=== PATIENT | female | born 2000 | race Caucasian/White ===

== ENCOUNTER 2023-05-12 11:47 | Emergency (ER) | payer OTHER, BC, SELFPAY ==
[2023-05-12 11:53] VITALS: BP 121/83
[2023-05-12 12:00] VITALS: BP 120/83; BMI 38.2
[2023-05-12 12:24] LABS: % Basophils 0.6 % (0-2); % Eosinophils 1.6 % (0-6); % Immature Granulocytes 0.6 % (0-0.5); % Monocytes 9.5 % (1.7-9.3); % Neutrophils 54.7 % (42.2-75.2); Absolute Eosinophils 0.1 10^3/uL (0-0.7); Absolute Lymphocytes 2.3 10^3/uL (1.2-3.4); Absolute Monocytes 0.7 10^3/uL (0.1-0.6); Absolute Neutrophils 3.8 10^3/uL (1.4-6.5); Hemoglobin 12.7 g/dL (12.0-16.0); Mean Corp Hgb Conc. 32.6 g/dL (33.0-37.0); Mean Corpuscular Volume 86.1 fL (81.0-99.0); Nucleated Red Blood Cells % 0 %; Platelet Count 375 10^3/uL (130-400); Red Blood Cell Count 4.53 10^6/uL (4.20-5.40); White Blood Cell Count 6.9 10^3/uL (4.8-10.8)
[2023-05-12 12:39] LABS: ALT (SGPT) 18 U/L (0-35); AST (SGOT) 20 U/L (14-36); Albumin 4.2 g/dl (3.5-5.0); Alkaline Phosphatase 125 U/L (38-126); Blood Urea Nitrogen 15 mg/dl (7-17); Calcium 9.3 mg/dl (8.4-10.2); Carbon Dioxide 27 mmol/L (22-30); Chloride 101 mmol/L (98-107); Estimated Creatinine Clearance > 125 ml/min; Glucose 99 mg/dl (70-99); Potassium 4.6 mmol/L (3.5-5.1); Sodium 136 mmol/L (135-145); Total Bilirubin 0.2 mg/dl (0.2-1.3); Total Protein 6.9 g/dl (6.3-8.2); eGFR > 60.00
[2023-05-12 13:00] VITALS: BP 111/92
--- NOTE | 2023-05-12 13:37 | ED.GENMED ---
History of Present Illness
General
Chief Complaint: Seizure
Source: patient
Time Seen by Provider: 05/12/23 13:25
Travel History
Have you had any contact with someone who has COVID-19?: No
Do you have any symptoms of coronavirus? Fever > 100 degrees, chills, cough, shortness of breath, sore throat, loss of taste or smell, muscle aches, or headache?: No
History of Present Illness
History of Present Illness:
19-year-old female presents to the emergency room stating she had a seizure at work. She hit the left side of her head but she fell. She has been compliant with her medication. She states this was a typical seizure for her. She does have a
headache. She is hungry and would like to eat.
Phy Exam
Physical Exam
Physical Exam:
General: Awake, Alert, Oriented X3. No acute distress.
Vitals: unremarkable
Head: Atraumatic
Eyes: Pupils equal, EOMI
Throat: Airway intact, no exudates
Neck: Trachea midline
Lungs: Clear and equal b/l
Heart: Regular rate, no murmurs
Abd: Soft, Nontender, No pulsatile mass
Neuro: Nonfocal
Skin: Warm, dry, no rash
Extremities: pulses equal b/l, no edema
Course
Orders/Labs/Results
Orders:
Orders
05/12/23 11:52
Electrocardiogram (*1) Urgent
Reason for Study: Vertigo / Dizzy
EKG- Treatment ONCE
05/12/23 12:08
CMP [Comprehensive Metabolic Panel] Urgent
Complete Blood Count/With Diff Urgent
05/12/23 13:34
CT Head W/o Iv Contrast Urgent
Comment:
Reason For Exam: head injury
Abnormal Lab Results
05/12/23
12:08
MCHC 32.6 L g/dL
(33.0-37.0)
Absolute Monos (auto) 0.7 H 10^3/uL
(0.1-0.6)
Immature Gran % 0.6 H %
(0-0.5)
Monocytes % 9.5 H %
(1.7-9.3)
05/12/23 12:08
05/12/23 12:08
Vital Signs
Initial and Last Documented VS:
Initial Vital Signs
Temp Pulse Resp BP Pulse Ox
98.6 F 88 18 121/83 98
05/12/23 11:53 05/12/23 11:53 05/12/23 11:53 05/12/23 11:53 05/12/23 11:53
Last Documented Vital Signs
Temp Pulse Resp BP Pulse Ox
98.6 F 90 17 112/79 96
05/12/23 11:53 05/12/23 14:00 05/12/23 14:00 05/12/23 14:00 05/12/23 14:00
MDM/Problems Addressed
Differential Diagnosis Includes:
Breakthrough seizure, concussion, subdural
MDM/Problems Addressed:
CT head is normal. Patient is at her baseline. Stable for discharge home continue taking her seizure medication.
*Radiology
Radiology exam reviewed: radiology read reviewed
*EKG
Interpreted by ED Provider?: Yes
Interpretation: normal
Heart Rate: 93
Rate: normal
Rhythm: sinus
[place]: normal axis
Interval: normal interval
QRS Pattern: normal QRS
Ischemia: no ischemia
*Power Press Operator Interpretation
Rate: normal
Interpretation: normal
Rhythm: sinus
*Critical Care Note
Total Time (30-74mins, 75-104mins- exclusive of procedures): Not Applicable
ED Attending Note
-
Portions of this chart may have been created with voice recognition software.� Occasional wrong word or��sound alike� substitutions may have occurred due to the inherent limitations of voice recognition software.
Discharge Plan
Departure
Patient Disposition: Home (Routine Discharge)
Date of Disposition: 05/12/23
Time of Disposition: 15:08
Patient with high blood pressure during this ER visit?: No
Condition: Good
Discharge Problem:
Breakthrough seizure, Head injury
Instructions: Seizures, Adult (DC), Head Injury in Adults (DC)
Referrals:
Cassidy Steve CRNP [Family Provider] -
Interventions
Interventions:
*Risk Screen - Suicide Last Done: 05/12/23 11:54
*General Assessment Last Done: 05/12/23 11:54
*Neglect/Abuse Screening Last Done: 05/12/23 11:54
*ED COVID-19 Vaccine History Last Done: 05/12/23 11:54
*Nursing Disposition Last Done: 05/12/23 15:25
ED- Cardiac Assessment Last Done: 05/12/23 12:10
ED- Neurological Assessment Last Done: 05/12/23 12:10
ED- Pulmonary Assessment Last Done: 05/12/23 12:10
Discharge Date and Time
Discharge Date/Time: 05/12/23 15:44
[2023-05-12 14:00] VITALS: BP 112/79
== END 2023-05-12 15:44 | disposition home or self-care (01) ==
LOC: EMR 11:47
PROVIDERS: Emergency Medicine; EMERGENCY PHYSICIAN Emergency Medicine; FAMILY PHYSICIAN Nurse Practitioner Family
DX: G40.909 Epilepsy, unspecified, not intractable, without status epilepticus (principal); S06.0XAA Concussion with loss of consciousness status unknown, initial encounter; W19.XXXA Unspecified fall, initial encounter
CPT/HCPCS: 99285; 70450; 80053; 85025; 93005

== ENCOUNTER 2023-05-28 23:59 | Inpatient (IN) | payer BC, OTHER, SELFPAY ==
[2023-05-28] VITALS (7 sets, daily range): BP systolic 112–136; BP diastolic 65–79; BMI 37.9
[2023-05-28 16:29] LABS: Urine Albumin Trace (Neg - Trace); Urine Bilirubin 1+ (Negative); Urine Character Slightly Cloudy (Clear); Urine Color Yellow; Urine Glucose Negative (Negative); Urine Ketone Trace (Negative); Urine Leukocyte Trace (Negative); Urine Nitrite Negative (Negative); Urine Occult Blood Negative (Negative); Urine Urobilinogen 2+ (Neg - 1+)
[2023-05-28 16:30] LABS: % Basophils 0.6 % (0-2); % Eosinophils 0.2 % (0-6); % Immature Granulocytes 0.6 % (0-0.5); % Lymphocytes 62.5 % (20.5-51.1); % Monocytes 6.6 % (1.7-9.3); % Neutrophils 29.5 % (42.2-75.2); Absolute Basophils 0.1 10^3/uL (0-0.2); Absolute Immature Granulocytes 0.1 10^3/uL (0-0.05); Absolute Lymphocytes 8.7 10^3/uL (1.2-3.4); Absolute Monocytes 0.9 10^3/uL (0.1-0.6); Absolute Neutrophils 4.1 10^3/uL (1.4-6.5); Hematocrit 40.2 % (37.0-47.0); Hemoglobin 12.7 g/dL (12.0-16.0); Mean Corp Hgb Conc. 31.6 g/dL (33.0-37.0); Mean Corpuscular Hgb 27.3 pg (27.0-31.0); Mean Corpuscular Volume 86.3 fL (81.0-99.0); Mean Platelet Volume 9.1 fL (7.4-10.4); Nucleated Red Blood Cells % 0 %; Platelet Count 243 10^3/uL (130-400); Red Blood Cell Count 4.66 10^6/uL (4.20-5.40); Red Cell Dist. Width 14.9 % (11.5-14.5); White Blood Cell Count 13.9 10^3/uL (4.8-10.8)
[2023-05-28 16:44] LABS: ALT (SGPT) 107 U/L (0-35); AST (SGOT) 40 U/L (14-36); Albumin 3.3 g/dl (3.5-5.0); Alkaline Phosphatase 394 U/L (38-126); Blood Urea Nitrogen 11 mg/dl (7-17); Carbon Dioxide 22 mmol/L (22-30); Chloride 109 mmol/L (98-107); Estimated Creatinine Clearance > 125 ml/min; Glucose 84 mg/dl (70-99); Potassium 3.9 mmol/L (3.5-5.1); Sodium 138 mmol/L (135-145); Total Bilirubin 0.4 mg/dl (0.2-1.3); Total Protein 6.1 g/dl (6.3-8.2); eGFR > 60.00
[2023-05-28 16:51] LABS: Urine Squamous Cell >30 /LPF (Few)
[2023-05-28 16:52] LABS: Urine Bacteria Many (Negative); Urine Red Blood Cell 0-2 /HPF (0-2); Urine White Cell 0-2 /HPF (0-5)
[2023-05-28 16:57] LABS: Absolute Neutrophils -Man Diff 5.2 10^3/uL (1.4-6.5); Band Neutrophils 4 % (0-3); Lymphocytes 16 % (20-51); Monocytes 3 % (2-9); Plasmacytoid Lymphocytes 43 %; Platelets Checked Yes; Segmented Neutrophils 34 % (42-75)
[2023-05-28 16:58] LABS: Normal RBC Morphology Yes; Total Cells Counted 100
--- NOTE | 2023-05-28 17:01 | ED.GENMED ---
History of Present Illness
General
Chief Complaint: Abdominal Pain
Time Seen by Provider: 05/28/23 17:01
Travel History
Have you had any contact with someone who has COVID-19?: No
Do you have any symptoms of coronavirus? Fever > 100 degrees, chills, cough, shortness of breath, sore throat, loss of taste or smell, muscle aches, or headache?: No
History of Present Illness
History of Present Illness:
HPI: Patient came in by ambulance due to upper abdominal pain that worsens with eating. The pain is primarily on the left side. She also has throat pain. The patient states that she was recently diagnosed with mono and states that she had imaging
that showed hepatosplenomegaly seen on CAT scan at [facility] about a week ago. She was just at [facility] within the past couple of days and was given fluids and then released. She came in here by ambulance for further evaluation.
EXAM:
GENERAL: The patient appears somewhat fatigued and uncomfortable
HEENT: Moist oral mucosa
CARDIOVASCULAR: No murmurs, tachycardic heart rate, regular rhythm, No chest wall tenderness
PULMONARY: No respiratory distress, breath sounds are clear and equal
ABDOMEN: Soft with no peritoneal signs, minimal left-sided tenderness
NEUROLOGIC: Excellent strength all extremities, no coordination deficits
PSYCHIATRIC: Appropriate mental status, normal insight and judgement
EXTREMITIES: Nontender, no edema, moves all extremities equally
SKIN: No rash, no lesions
TIME OF INITIAL ENCOUNTER: 5 PM
NUMBER AND COMPLEXITY OF PROBLEMS ADDRESSED AT THE ENCOUNTER
� Chronic conditions affecting care: Seizures, anxiety, bipolar/depression, OCD, PTSD
� Acute Exacerbation and/or Progression of Chronic Illness: This is a subacute problem
� Differential Diagnosis includes: Progression of mono, splenic rupture unlikely but will consider, gastritis/GERD
AMOUNT AND/OR COMPLEXITY OF DATA TO BE REVIEWED AND ANALYZED
� I performed an independent evaluation of and my interpretation is:
EKG:
CT: CT imaging relatively unremarkable
X-rays:
Laboratory Studies: White count 13.9, hemoglobin normal, transaminases slightly elevated, alk phos is 394, 1+ bilirubin in urine noted, trace ketones
Other: Ultrasound imaging report read by vision shows 'small mobile gallstone wounds in the gallbladder, no gallbladder wall thickening or pericholecystic fluid, negative Valerio sign, common bile duct measures 4.8 mm, mild
splenomegaly, unremarkable liver and kidneys.
� Review of other/old records: The patient was seen here about 2 weeks ago with a breakthrough seizure
� Clinical information was obtained by an independent historian: I spoke to the at her bedside
� Prescriptions/Medications Considered but not given:
� Further testing considered but not performed:
RISK OF COMPLICATIONS AND/OR MORBIDITY OR MORTALITY OF PATIENT MANAGEMENT
� Social determinants of health affecting care: Lives at home
� Discussion with other providers: Discussed case with Dr. Fitch, no indication for surgical admission; hospitalist for admission at 10:30 PM, Dr. Champion
� Escalation of care including admission/observation vs risk of discharge considered: Given the patient's reported severe pain will obtain CT imaging for further evaluation. While in ED, the patient has had several episodes
where she feels as if she is going to pass out despite receiving IV fluids. The patient states she feels upper abdominal pain and only has nausea/vomiting when she attempts to eat. She has been doing poorly as an outpatient.
Phy Exam
Physical Exam
Physical Exam:
See HPI
Course
Orders/Labs/Results
Orders:
Orders
05/28/23 16:21
CMP [Comprehensive Metabolic Panel] Urgent
Complete Blood Count/With Diff Urgent
HCG, Urine Qualitative Screen Urgent
Date Specimen was Collected: 05/28/23
Time Specimen was Collected: 16:19
Comment: ADD ON
Manual Differential Urgent
Urinalysis Reflex To Culture Urgent
Date Specimen was Collected: 05/28/23
Time Specimen was Collected: 16:19
Urine Microscopic Reflex Cult Urgent
Urine Culture Urgent
JENNA Source: U
Specimen Description:
Date Specimen was Collected: 05/28/23
Time Specimen was Collected: 16:19
05/28/23 16:42
Test Result ONCE
05/28/23 17:07
0.9% Sodium Chloride 1000 ml [Nss] 1,000 ml IV BOLUS
05/28/23 17:08
CT Abd/pelvis W Iv Cont Urgent
Comment:
Reason For Exam: L side pain; abnormal LFTs reports hepatosplenomeg
Dexamethasone Sod Phosphate [Decadron] 8 mg IV NOW STA
Ketorolac [Toradol] 15 mg IV NOW STA
05/28/23 17:42
Add On- LAB Stat
Tests Added?: urine hcg
05/28/23 20:00
US Abdomen Complete/Upper Urgent
Comment:
Reason For Exam: upper pain abnormal LFTs
05/28/23 20:01
Ketorolac [Toradol] 15 mg IV NOW STA
Abnormal Lab Results
05/28/23
16:21
WBC 13.9 H 10^3/uL
(4.8-10.8)
MCHC 31.6 L g/dL
(33.0-37.0)
RDW 14.9 H %
(11.5-14.5)
Abs Immat Gran (auto) 0.1 H 10^3/uL
(0-0.05)
Absolute Lymphs (auto) 8.7 H 10^3/uL
(1.2-3.4)
Absolute Monos (auto) 0.9 H 10^3/uL
(0.1-0.6)
Immature Gran % 0.6 H %
(0-0.5)
Neutrophils % 29.5 L %
(42.2-75.2)
Lymphocytes % 62.5 H %
(20.5-51.1)
Segmented Neutrophils 34 L %
(42-75)
Band Neutrophils 4 H %
(0-3)
Lymphocytes (Manual) 16 L %
(20-51)
Chloride 109 H mmol/L
(98-107)
Calcium 8.0 L mg/dl
(8.4-10.2)
AST 40 H U/L
(14-36)
ALT 107 H U/L
(0-35)
Alkaline Phosphatase 394 H U/L
(38-126)
Total Protein 6.1 L g/dl
(6.3-8.2)
Albumin 3.3 L g/dl
(3.5-5.0)
Urine Ketones Trace A
(Negative)
Urine Bilirubin 1+ A
(Negative)
Urine Urobilinogen 2+ A
(Neg - 1+)
Leukocyte Esterase Rfl Trace A
(Negative)
Urine Bacteria (Reflex) Many A
(Negative)
05/28/23 16:21
05/28/23 16:21
Vital Signs
Initial and Last Documented VS:
Initial Vital Signs
Temp Pulse Resp BP Pulse Ox
98.3 F 114 18 112/75 95
05/28/23 16:09 05/28/23 16:09 05/28/23 16:09 05/28/23 16:09 05/28/23 16:09
Last Documented Vital Signs
Temp Pulse Resp BP Pulse Ox
98.3 F 110 24 136/79 95
05/28/23 16:09 05/28/23 18:15 05/28/23 18:15 05/28/23 21:00 05/28/23 21:15
*Critical Care Note
Total Time (30-74mins, 75-104mins- exclusive of procedures): Not Applicable
ED Attending Note
-
Portions of this chart may have been created with voice recognition software.� Occasional wrong word or��sound alike� substitutions may have occurred due to the inherent limitations of voice recognition software.
Discharge Plan
Departure
Patient Disposition: Admit
Date of Disposition: 05/28/23
Time of Disposition: 22:30
Presentation/result/management discussed w/ accepting MD/DO: Hospitalist
Discharge Problem:
Intractable abdominal pain
Referrals:
Cassidy Steve CRNP [Family Provider] -
Interventions
Interventions:
*Risk Screen - Suicide Last Done: 05/28/23 16:09
*General Assessment Last Done: 05/28/23 16:09
*Neglect/Abuse Screening Last Done: 05/28/23 16:09
ED- Fall Risk Assessment Last Done: 05/28/23 16:15
*ED COVID-19 Vaccine History Last Done: 05/28/23 16:09
WE-Xdnwfv-Pcmrhymrby Assessment Last Done: 05/28/23 16:09
Discharge Date and Time
Print Language: [place] CITIZEN
[2023-05-28] MEDS: NSS 1000 IV (17:25)
[2023-05-28] MEDS: DECADRON 8 MG IV (17:26)
[2023-05-28] MEDS: TORADOL 15 MG IV ×2 (17:26→20:05)
[2023-05-28 18:08] LABS: HCG, Urine Qualitative Screen Negative
--- NOTE | 2023-05-28 22:57 | HPS.HSE ---
Family Physician
-
Family Physician: Cassidy Steve
Chief Complaint
-
Abd pain
History of Present Illness
22 woman comes in by ambulance due to upper abdominal pain that worsens with eating. The pain is primarily on the left side, and she also has throat pain. The patient states that she was recently diagnosed with mono (1 week ago) and states that
she had imaging that showed hepatosplenomegaly seen on CAT scan at [facility] about a week ago. She was recently at [facility] within the past couple of days, was given fluids and then released. She came in here by ambulance for further
evaluation. CT in ED shows:
1. No CT evidence for an acute inflammatory process in the abdomen or pelvis.
2. Splenomegaly.
Medical History
Past Medical History
Past Medical History: Reports Other
Additional Past Medical History:
Seizure d/o
BMI of 37.9
Past Surgical History: Reports None
Social History
Tobacco: Smoker
Alcohol: None
Drug: None
Personal: Partner
Family History
Family History: Not pertinent
Allergies / Home Medications
Allergies reflects when Allergies were last updated in [facility].
Home Medications with original date entered in [facility]
Allergy/Medication List:
Allergies
Allergy/AdvReac Type Severity Reaction Status Date / Time
pecan nut Allergy Severe Anaphylaxis Verified 05/12/23 12:07
ondansetron [From Zofran] Allergy Intermediate Hives Verified 05/12/23 12:07
risperidone Allergy Intermediate Unknown Verified 05/12/23 12:07
Review of Systems
-
History Source: Patient
A 12 point ROS was completed and negative except as noted: Yes
Physical Exam
Vital Signs
Vital Signs
Temp Pulse Resp BP Pulse Ox
98.3 F 110 24 136/79 95
05/28/23 16:09 05/28/23 18:15 05/28/23 18:15 05/28/23 21:00 05/28/23 21:15
Physical Exam
General: Well Developed, Well Nourished, No Apparent Distress, Comfortable, Conversant and Obese
HEENT: NormoCephalic, Moist mucous membranes, Nose Appears Normal and Ears Appear Normal
Respiratory: Clear
Cardiac: S1/S2 and Regular Rhythm
GI: Soft and Non Distended
Musculoskeletal: No Clubbing, No Cyanosis and No Edema
Skin: Warm and Dry; No Rash or Jaundice
Neuro: Awake, Alert, Oriented and AO x 3
Psych: Calm
Laboratory Results
-
05/28/23 16:21
05/28/23 16:21
Laboratory Results
Total Bilirubin 0.4 mg/dl (0.2-1.3) 05/28/23 16:21
AST 40 U/L (14-36) H 05/28/23 16:21
ALT 107 U/L (0-35) H 05/28/23 16:21
Alkaline Phosphatase 394 U/L (38-126) H 05/28/23 16:21
Data Reviewed
-
Lab Data: Labs Reviewed by me
Impression/Plan
-
IMPRESSION:
22 woman with mono comes in with abd pain, nausea and vomiting with eating. CT shows splenomegaly.
PLAN:
1. Nausea with eating in setting of active [place] infection- npo for now
GI consult
Repeat US in am
Repeat labs in am
Follow UA culture if indicated (has current vaginal yeast infection)
VCD for DVTp
Full code
[2023-05-29 00:03] VITALS: BP 126/73
[2023-05-29] MEDS: NEURONTIN 100 MG PO ×4 (00:47→21:50)
[2023-05-29] MEDS: CLARITIN 10 MG PO ×2 (00:47→21:50)
[2023-05-29] MEDS: EFFEXOR XR 150 MG PO ×2 (00:47→21:50)
[2023-05-29] MEDS: ABILIFY 15 MG PO ×2 (00:51→21:50)
[2023-05-29 01:00] VITALS: BP 118/79
[2023-05-29] MEDS: LAMICTAL 200 MG PO ×3 (01:12→20:18)
[2023-05-29] MEDS: LAMICTAL 50 MG PO ×3 (01:12→20:18)
[2023-05-29 01:42] VITALS: BP 127/81; BMI 36.6
--- NOTE | 2023-05-29 02:00 | PTCARENOTE ---
pt arrived from ed, walked into room with significant other present. pt aaox3, VSS, see MAR and assessment for further details. call silva within reach.
[2023-05-29] MEDS: LR 1000 IV ×4 (02:17→17:29)
[2023-05-29 07:38] VITALS: BP 123/89
[2023-05-29 08:22] LABS: Hematocrit 37.1 % (37.0-47.0); Mean Corp Hgb Conc. 32.3 g/dL (33.0-37.0); Mean Corpuscular Hgb 27.5 pg (27.0-31.0); Mean Corpuscular Volume 84.9 fL (81.0-99.0); Mean Platelet Volume 8.9 fL (7.4-10.4); Nucleated Red Blood Cells % 0 %; Platelet Count 266 10^3/uL (130-400); Red Blood Cell Count 4.37 10^6/uL (4.20-5.40); Red Cell Dist. Width 14.4 % (11.5-14.5); White Blood Cell Count 10.7 10^3/uL (4.8-10.8)
[2023-05-29 08:35] LABS: ALT (SGPT) 95 U/L (0-35); AST (SGOT) 37 U/L (14-36); Albumin 3.5 g/dl (3.5-5.0); Alkaline Phosphatase 390 U/L (38-126); Blood Urea Nitrogen 11 mg/dl (7-17); Calcium 8.7 mg/dl (8.4-10.2); Carbon Dioxide 22 mmol/L (22-30); Chloride 108 mmol/L (98-107); Estimated Creatinine Clearance > 125 ml/min; Glucose 83 mg/dl (70-99); Potassium 4.4 mmol/L (3.5-5.1); Sodium 136 mmol/L (135-145); Total Bilirubin 0.5 mg/dl (0.2-1.3); Total Protein 6.3 g/dl (6.3-8.2); eGFR > 60.00
[2023-05-29] MEDS: COMPAZINE 5 MG IV (08:36)
[2023-05-29 08:40] LABS: Lipase 397 U/L (23-300)
--- NOTE | 2023-05-29 09:32 | CON.GI ---
Consultation
-
Date/Time Consultation Requested: 05/29/23 at 7am
Date/Time Consultation Performed: 05/29/23 at 8am
Requesting Provider: Chen
Performing Provider: isak
Reason for Consultation: abd pain
Medical History
Chief Complaint / HPI
Chief Complaint: nausea, pain
History of Present Illness:
This patient is a 22-year-old woman with a history of constipation, who presents With issues with eating and with left-sided abdominal pain. She states that she was diagnosed with mono a week ago and has been having trouble swallowing due to pain
in the back of her throat, nausea and some upper abdominal pain. She also has fits of coughing which makes her more nauseated and give her more pain. She did go to an outside hospital and got IV fluids and was discharged. She returns because she
continues to have difficulty. In the ER she did have a negative test and she did have a CAT scan that showed splenomegaly but no other abnormality.
Past Medical History
Past Medical History: Psychiatric and Other (Constipation)
Past Surgical History: None
Social History
Tobacco: Non-Smoker
Family History
Family History: Reviewed & Not Pertinent
Allergies / Home Medications
Allergy/AdvReac Type Severity Reaction Status Date / Time
pecan nut Allergy Severe Anaphylaxis Verified 05/12/23 12:07
ondansetron [From Zofran] Allergy Intermediate Hives Verified 05/12/23 12:07
risperidone Allergy Intermediate Unknown Verified 05/12/23 12:07
�Medication �Instructions �Recorded
Abilify 15 mg PO QHS 05/28/23
cetirizine 10 mg tablet (Zyrtec) 10 mg PO QHS 05/28/23
gabapentin 100 mg tablet 100 mg PO TID 05/28/23
venlafaxine 150 mg 150 mg PO QHS 05/28/23
capsule,extended release 24 hr
(Effexor XR)
albuterol 90 mcg/actuation aerosol 90 mcg inhalation PRN SOB 05/29/23
inhaler
fluticasone propionate 110 1 puff inhalation BID 05/29/23
mcg/actuation HFA aerosol inhaler
lamotrigine 100 mg PO BID 05/29/23
lamotrigine 150 mg tablet 150 mg PO BID 05/29/23
Review of Systems
-
All other systems: A 12 pt ROS was Negative except as stated above in HPI
Vital Signs
Temp Pulse Resp BP Pulse Ox
98.1 F 107 17 123/89 97
05/29/23 07:38 05/29/23 07:38 05/29/23 07:38 05/29/23 07:38 05/29/23 07:38
Physical Exam
Exam
General: No Apparent Distress
Cardiac: S1/S2
GI: Soft and Other (epigastric tenderness, mild splenomegaly)
Neuro: Awake and Oriented
Psych: Calm
Results
WBC 10.7 10^3/uL (4.8-10.8) 05/29/23 07:46
Hgb 12.0 g/dL (12.0-16.0) 05/29/23 07:46
Hct 37.1 % (37.0-47.0) 05/29/23 07:46
MCV 84.9 fL (81.0-99.0) 05/29/23 07:46
Plt Count 266 10^3/uL (130-400) 05/29/23 07:46
Absolute Neuts (auto) 4.1 10^3/uL (1.4-6.5) 05/28/23 16:21
Sodium 136 mmol/L (135-145) 05/29/23 07:46
Potassium 4.4 mmol/L (3.5-5.1) 05/29/23 07:46
Chloride 108 mmol/L (98-107) H 05/29/23 07:46
Carbon Dioxide 22 mmol/L (22-30) 05/29/23 07:46
BUN 11 mg/dl (7-17) 05/29/23 07:46
Creatinine 0.6 mg/dL (0.6-1.0) 05/29/23 07:46
Calcium 8.7 mg/dl (8.4-10.2) 05/29/23 07:46
Total Bilirubin 0.5 mg/dl (0.2-1.3) 05/29/23 07:46
AST 37 U/L (14-36) H 05/29/23 07:46
ALT 95 U/L (0-35) H 05/29/23 07:46
Alkaline Phosphatase 390 U/L (38-126) H 05/29/23:46
Lipase 397 U/L (23-300) H 05/29/23 07:46
Assessment / Plan
-
This patient is a 22-year-old woman who has a recent diagnosis of mononucleosis with throat pain, nausea, coughing and epigastric abdominal pain which may be related to splenomegaly. For now I would do the following;
1. IV antiemetics
2. IV PPI bid
3. clear liquids as tolerated
4. u/s pending, ct scan negative except splenomegaly
5. follow lfts with mildly elevated transaminases, ALP and lipase
-
-
Thank you for consultation and allowing me to participate in the patient's care. Please call the water control station engineer GI physician during the after hours with any questions or concerns.
[2023-05-29 10:36] LABS: Monotest Negative (Negative)
[2023-05-29 10:53] LABS: Absolute Neutrophils -Man Diff 4.1 10^3/uL (1.4-6.5); Atypical Lymphocytes 5 %; Band Neutrophils 1 % (0-3); Lymphocytes 49 % (20-51); Monocytes 7 % (2-9); Segmented Neutrophils 38 % (42-75)
[2023-05-29 10:54] LABS: Total Cells Counted 100
[2023-05-29 10:55] LABS: Platelets Checked YES
[2023-05-29 10:56] LABS: Normal RBC Morphology Yes
--- NOTE | 2023-05-29 11:33 | W.PN.HOSP.TC ---
Today's Communication/Plan
-
IVF
clears
ADAT
GI recs
Assessment / Plan
Assessment / Plan
IMPRESSION:
22 woman with mono comes in with abd pain, nausea and vomiting with eating. CT shows splenomegaly.
PLAN:
Nausea with eating in setting of active [place] infection
-Start patient on clear liquid diet. Continue fluids IV
-PPI
-Antinausea meds as needed
-CT abdomen pelvis noted splenomegaly.
-Abdominal distention splenomegaly
-Check for mono and strep
-Outside records requested
-If no improvement may need Barium esophagram versus endoscopy
-Gastroenterology consulted
History of seizures
-Continue with Lamictal
Mood disorder
-Continue with Effexor and Abilify
Tobacco abuse
-Nicotine patch
Morbid obesity due to excess calories
DVT prophylaxis. SCDs
Full code
Discussed with patient portion of bedside
Anticipated Discharge: > 48 hours
Subjective/Interval History
-
Date of Service: May 29, 2023
states of left upper quadrant abd pain
states of difficulties swallowing
States abdominal pain starts with swallowing
No nausea or vomiting
States her symptoms started when she was diagnosed with mono recently
Objective Data
-
Labs:
Laboratory Results
05/29/23
07:46
WBC 10.7
Hgb 12.0
Hct 37.1
Plt Count 266
Sodium 136
Potassium 4.4
Chloride 108 H
Carbon Dioxide 22
BUN 11
Creatinine 0.6
Glucose 83
Calcium 8.7
Total Bilirubin 0.5
AST 37 H
ALT 95 H
Alkaline Phosphatase 390 H
Vital Signs:
Vital Signs
Temp Pulse Resp BP Pulse Ox
98.1 F 107 17 123/89 97
05/29/23 07:38 05/29/23 07:38 05/29/23 07:38 05/29/23 07:38 05/29/23 07:38
Physical Exam
-
General: Well Developed, No Apparent Distress, Morbidly Obese and Other (Sleeping opens eyes during conversation)
HEENT: Normocephalic, Atraumatic and Moist Mucous Membranes
Respiratory: Clear to Auscultation
Cardiac: Regular Rhythm and S1/S2; Negative Murmur, Rub or Gallop
GI: Soft, Nontender, Nondistended and Normal Bowel Sounds; Negative Organomegaly
Rectal: Deferred by Provider
Musculoskeletal: No Clubbing, No Cyanosis and No Edema
Skin: Negative Rash
Neuro: Awake, AO x 3, No Motor Deficits and Nonfocal/Grossly Intact
Psych: Calm
[2023-05-29] MEDS: TYLENOL 650 MG PO ×2 (14:38→21:55)
[2023-05-29 15:27] VITALS: BP 114/79
--- NOTE | 2023-05-29 15:45 | CM ---
Spoke with pt at bedside
Lives in an apartment with her boyfriend and his father
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
Denies DME in home
Denies past snf/HH
Has ride home at d/c
PCP - Dr Cassidy Steve ([facility])
Pharm - [facility]
Plan - anticipate home no needs
[2023-05-29] MEDS: NSS (PRESERVATIVE FREE) 10 ML IV (17:30)
[2023-05-29] MEDS: PROTONIX IV 40 MG IV (17:30)
[2023-05-29 20:04] LABS: COVID-19 Antigen Negative (Negative)
[2023-05-29 23:35] VITALS: BP 124/73
[2023-05-30] MEDS: LR 1000 IV ×5 (01:06→23:17)
[2023-05-30] MEDS: COMPAZINE 5 MG IV (01:18)
--- NOTE | 2023-05-30 04:30 | PTCARENOTE ---
This RN entered the pt room, pt observed laying in bed holding a conversation with boyfriend at the bedside. Pt. boyfriend stated, 'oh we wanted to let you know that we think she had a seizure when she was in the bathroom a little bit ago' This RN
assessed patient who was able to answer all questions appropriately, VSS. Pt. c/o nausea. PRN compazine administered. RIC [place] notified. No new orders at this time. Pt. encouraged to use call silva with assistance ambulating. Call silva
within reach. Plan of care ongoing.
[2023-05-30 07:00] VITALS: BP 143/89
[2023-05-30 07:06] LABS: % Basophils 0.6 % (0-2); % Eosinophils 0.3 % (0-6); % Immature Granulocytes 0.8 % (0-0.5); % Lymphocytes 60.2 % (20.5-51.1); % Monocytes 6.7 % (1.7-9.3); % Neutrophils 31.4 % (42.2-75.2); Absolute Basophils 0.1 10^3/uL (0-0.2); Absolute Immature Granulocytes 0.1 10^3/uL (0-0.05); Absolute Lymphocytes 5.5 10^3/uL (1.2-3.4); Absolute Monocytes 0.6 10^3/uL (0.1-0.6); Absolute Neutrophils 2.8 10^3/uL (1.4-6.5); Hematocrit 37.2 % (37.0-47.0); Hemoglobin 12.1 g/dL (12.0-16.0); Mean Corp Hgb Conc. 32.5 g/dL (33.0-37.0); Mean Corpuscular Hgb 27.4 pg (27.0-31.0); Mean Corpuscular Volume 84.2 fL (81.0-99.0); Mean Platelet Volume 8.8 fL (7.4-10.4); Nucleated Red Blood Cells % 0 %; Platelet Count 307 10^3/uL (130-400); Red Blood Cell Count 4.42 10^6/uL (4.20-5.40); Red Cell Dist. Width 14.2 % (11.5-14.5); White Blood Cell Count 9.1 10^3/uL (4.8-10.8)
[2023-05-30] MEDS: LAMICTAL 200 MG PO ×2 (08:00→20:02)
[2023-05-30] MEDS: PROTONIX IV 40 MG IV ×2 (08:00→20:02)
[2023-05-30] MEDS: LAMICTAL 50 MG PO ×2 (08:00→20:02)
[2023-05-30] MEDS: NSS (PRESERVATIVE FREE) 10 ML IV ×2 (08:00→20:03)
[2023-05-30] MEDS: NEURONTIN 100 MG PO ×3 (08:00→21:55)
[2023-05-30 08:12] LABS: ALT (SGPT) 74 U/L (0-35); AST (SGOT) 36 U/L (14-36); Albumin 3.4 g/dl (3.5-5.0); Alkaline Phosphatase 356 U/L (38-126); Blood Urea Nitrogen 7 mg/dl (7-17); Calcium 9.1 mg/dl (8.4-10.2); Carbon Dioxide 25 mmol/L (22-30); Chloride 105 mmol/L (98-107); Estimated Creatinine Clearance > 125 ml/min; Glucose 82 mg/dl (70-99); Lipase 588 U/L (23-300); Potassium 4.3 mmol/L (3.5-5.1); Sodium 136 mmol/L (135-145); Total Bilirubin 0.5 mg/dl (0.2-1.3); Total Protein 6.2 g/dl (6.3-8.2); eGFR > 60.00
--- NOTE | 2023-05-30 09:24 | W.PN.GI.CBS2 ---
Addendum entered and electronically signed by Babak Zayas MD 05/30/23 13:01:
I saw and examined the patient.
The LICENSED ESTHETICIAN or PA's note was reviewed and I agree with the note.
Comment:
Pt with no vomiting but still odynophagia. abd pain improved. Recent mono
oriented
impression
abdominal pain
splenomegaly
odynophagia
plan:
add nystatin swish swallow as she does use a steroid inhaler
clear liquids as tolerated
IV PPI bid
recommend ID/EGD if not improved
Original Note:
Today's Communication / Plan
-
Add Nystatin swish and swallow
Assessment / Plan
-
This patient is a 22-year-old woman who has a recent diagnosis of mononucleosis with throat pain, nausea, coughing and epigastric abdominal pain which may be related to splenomegaly. For now I would do the following;
1. IV antiemetics
2. IV PPI bid
3. clear liquids as tolerated
4. Trend LFTs, coming down
5. Trend lipase, coming down as well
6. Add Nystatin swish and swallow to see if this improves odynophagia
7. IF no improvement to consider EGD.
8. Recommend ID consultation
Subjective
Subjective
Date of Service: May 30, 2023
Patient still with odynophagia in her upper throat and then a burning pain substernal with trying to drink any liquids. She had vomiting of 'frothy white liquid'. Can drink liquid but just painful. Therefore limits herself. She had Amoxicillin 2
week ago for dental infection, uses Fluticasone inhaler BID. Has a mild white coating on her tongue, ? ras. Would avoid Diflucan considering other meds that she is on. Will try Nystatin swish and swallow to see if this improves her sx. Patient
still feeling sx from [place] as well, tmax 99.7 overnight.
Objective
Data Reviewed
Laboratory Data:
Laboratory Results
05/30/23 06:49
05/30/23 06:49
Laboratory Results
Total Bilirubin 0.5 mg/dl (0.2-1.3) 05/30/23 06:49
AST 36 U/L (14-36) 05/30/23 06:49
ALT 74 U/L (0-35) H 05/30/23 06:49
Alkaline Phosphatase 356 U/L (38-126) H 05/30/23 06:49
Lipase 588 U/L (23-300) H 05/30/23 06:49
Vital Signs and I&O:
Vital Signs
Temp Pulse Resp BP Pulse Ox
98.1 F 111 18 143/89 97
05/30/23 07:00 05/30/23 07:00 05/30/23 07:00 05/30/23 07:00 05/30/23 07:00
I&O
05/29/23 05/30/23 05/31/23
06:59 06:59 06:59
Intake Total 2520 / 2520
Balance 2520 / 2520
Physical Exam
Physical Exam
HEENT: Anicteric
Cardiology: Normal Sinus Rhythm
Pulmonary: Clear (anterior)
GI: Soft, Non Distended, Non Tender and Normal Bowel Sounds
Extremities: No Edema
Neuro: Non Focal
[2023-05-30] MEDS: MYCOSTATIN ORAL SUSPENSION 5 ML PO ×3 (12:33→21:55)
--- NOTE | 2023-05-30 13:01 | W.PN.UPDATE ---
Update Note
Progress Note Update
for billing purposes only
--- NOTE | 2023-05-30 14:48 | CM ---
Case management following for d/c planning
Pt cont to have abdominal pain
Starting nystatin swish swallow for swallowing pain/thrush
Clear liquids
CM will follow for d/c needs
Plan - Anticipate home no needs
[2023-05-30 16:00] VITALS: BP 136/96
--- NOTE | 2023-05-30 16:38 | W.PN.HOSP.TC ---
Addendum entered and electronically signed by Wily Bravo MD 05/30/23 20:36:
Attending Addendum-
I saw and evaluated the patient. I reviewed the resident�s note and agree with findings and plan as documented in the resident�s note. Patient compalins of odynophagia and pain in epigastric region radiating up towards mouth. Appears comfortable.
Full 12 point ROS reviewed and negative except as documented Exam: GEN NAD heart RRR Lungs clear abd soft NT ND no HSM Plan:
# Infectious mononucleosis infection
-cont clear liquid diet. DC IVF
-cont PPI
-following normal sequela of EBV
-trend LFT's
-Gastroenterology consulted for possible scope in am
#Odynophagia
- possible esophagitis/thrush
- nystatin started
- if no benefit, possible scope in am
#History of seizures
-Continue with Lamictal
#Mood disorder
-Continue with Effexor and Abilify
#Tobacco abuse
-Nicotine patch
#Morbid obesity due to excess calories
Dispo- hopeful DC in am
Time spent coordinating care, review of plan of care with resident, review of records, med rec, consults, notes, labs, rads, d/w nursing family and GI � 55 mins
Original Note:
Today's Communication/Plan
-
Discharge tomorrow
Assessment / Plan
Assessment / Plan
IMPRESSION:
22 woman with mono comes in with abd pain, nausea and vomiting with eating. CT shows splenomegaly.
PLAN:
Nausea with eating in setting of active [place] infection
Unable to tolerate, NPO , potential endoscopy tomorrow, per GI.
Restart IV fluids.
Continue IV Protonix
Continue Compazine as needed
GI input appreciated
Patient was started on a nystatin as she was using steroid inhalers at home.
Observe tonight, likely discharge tomorrow
Not planning on endoscopy per GI
History of seizures
-Continue with Lamictal
Mood disorder
-Continue with Effexor and Abilify
Tobacco abuse
-Nicotine patch
Morbid obesity due to excess calories
DVT prophylaxis. SCDs
Full code
Discussed with patient portion of bedside
Anticipated Discharge: Within 24 hours
Subjective/Interval History
-
Date of Service: May 30, 2023
Patient complains of 10 on 10 epigastric pain
Objective Data
-
Labs:
Laboratory Results
05/30/23
06:49
WBC 9.1
Hgb 12.1
Hct 37.2
Plt Count 307
Sodium 136
Potassium 4.3
Chloride 105
Carbon Dioxide 25
BUN 7
Creatinine 0.7
Glucose 82
Calcium 9.1
Total Bilirubin 0.5
AST 36
ALT 74 H
Alkaline Phosphatase 356 H
Vital Signs:
Vital Signs
Temp Pulse Resp BP Pulse Ox
98.3 F 100 16 136/96 95
05/30/23 16:00 05/30/23 16:00 05/30/23 16:00 05/30/23 16:00 05/30/23 16:00
I&O
05/29/23 05/30/23 05/31/23
06:59 06:59 06:59
Intake Total 2520 / 2520
Balance 2520 / 2520
Review of Systems
-
History Source: Patient
All other systems: Reviewed and negative (Except mentioned)
Abdomen/GI: Reports Abdominal Pain
Physical Exam
-
General: Obese
HEENT: Normocephalic
Respiratory: Clear to Auscultation
Cardiac: Regular Rhythm and S1/S2
GI: Soft, Nondistended, Normal Bowel Sounds and Tender (4 out of 10 tenderness diffusely present)
Musculoskeletal: No Edema
Neuro: AO x 3
Psych: Depressed
[2023-05-30] MEDS: TYLENOL 650 MG PO (16:40)
[2023-05-30] MEDS: ABILIFY 15 MG PO (21:54)
[2023-05-30] MEDS: CLARITIN 10 MG PO (21:54)
[2023-05-30] MEDS: EFFEXOR XR 150 MG PO (21:55)
[2023-05-30] MEDS: MELATONIN 5 MG PO (22:05)
[2023-05-30] MEDS: LR IV (22:17)
[2023-05-30 23:30] VITALS: BP 138/81
[2023-05-31] MEDS: LR 1000 IV ×2 (04:35→10:31)
[2023-05-31 05:40] LABS: % Basophils 0.4 % (0-2); % Eosinophils 0.4 % (0-6); % Immature Granulocytes 0.6 % (0-0.5); % Lymphocytes 63.4 % (20.5-51.1); % Monocytes 6.4 % (1.7-9.3); % Neutrophils 28.8 % (42.2-75.2); Absolute Immature Granulocytes 0.1 10^3/uL (0-0.05); Absolute Lymphocytes 6.4 10^3/uL (1.2-3.4); Absolute Monocytes 0.7 10^3/uL (0.1-0.6); Absolute Neutrophils 2.9 10^3/uL (1.4-6.5); Mean Corp Hgb Conc. 32.5 g/dL (33.0-37.0); Mean Corpuscular Hgb 27.5 pg (27.0-31.0); Mean Corpuscular Volume 84.6 fL (81.0-99.0); Mean Platelet Volume 8.4 fL (7.4-10.4); Nucleated Red Blood Cells % 0 %; Platelet Count 359 10^3/uL (130-400); Red Blood Cell Count 4.73 10^6/uL (4.20-5.40); White Blood Cell Count 10.2 10^3/uL (4.8-10.8)
[2023-05-31 06:49] LABS: ALT (SGPT) 72 U/L (0-35); AST (SGOT) 45 U/L (14-36); Albumin 3.8 g/dl (3.5-5.0); Alkaline Phosphatase 352 U/L (38-126); Blood Urea Nitrogen 6 mg/dl (7-17); Calcium 9.4 mg/dl (8.4-10.2); Carbon Dioxide 24 mmol/L (22-30); Chloride 104 mmol/L (98-107); Direct Bilirubin 0.3 mg/dl (0.0-0.4); Estimated Creatinine Clearance > 125 ml/min; Glucose 81 mg/dl (70-99); Lipase 711 U/L (23-300); Potassium 4.4 mmol/L (3.5-5.1); Sodium 136 mmol/L (135-145); Total Bilirubin 0.7 mg/dl (0.2-1.3); Total Protein 6.6 g/dl (6.3-8.2); eGFR > 60.00
[2023-05-31 07:00] VITALS: BP 113/65
--- NOTE | 2023-05-31 08:09 | W.PN.UPDATE ---
Update Note
Progress Note Update
pt still with significant dysphagia overnight. Pt agreeable to proceed with EGD today. cont NPO, updated nursing staff.
[2023-05-31] MEDS: LAMICTAL 50 MG PO ×2 (08:14→21:06)
[2023-05-31] MEDS: LAMICTAL 200 MG PO ×2 (08:14→21:07)
[2023-05-31] MEDS: NEURONTIN 100 MG PO ×3 (08:14→21:07)
[2023-05-31] MEDS: MYCOSTATIN ORAL SUSPENSION 5 ML PO ×4 (08:14→21:07)
[2023-05-31] MEDS: PROTONIX IV 40 MG IV ×2 (08:14→21:08)
[2023-05-31] MEDS: NSS (PRESERVATIVE FREE) 10 ML IV ×2 (08:15→21:08)
[2023-05-31] MEDS: TYLENOL 650 MG PO ×3 (08:18→23:24)
--- NOTE | 2023-05-31 09:22 | W.PN.HOSP.TC ---
Addendum entered and electronically signed by Ulysses Cardenas MD 05/31/23 13:34:
Patient seen and examined
Discussed with resident
Discussed with gastroenterology.
Impression:
Persistent odynophagia/epigastric pain
Episode of emesis
Elevation of lipase.
Infectious mononucleosis
Lymphocytosis
Conditions prior to admission:
Seizure disorder on Lamictal
Mood disorder
Tobacco use disorder
Obesity with BMI of 36.
Plan:
Persistent odynophagia.
No thrush on exam. Initiated empirically on nystatin
EGD today consistent with lower esophageal ulcer highly suspicious for herpetic. No bleeding.
Pathology pending
ID consultation
HIV screening.
Acyclovir
Continue nystatin
Initiate Magic mouthwash with lidocaine
Monitor closely
Splenomegaly
Lymphocytosis.
Seizure disorder on Lamictal.
Mood disorder continue Effexor and Abilify.
Tobacco abuse disorder on nicotine patch
Original Note:
Today's Communication/Plan
-
Endoscope today
N.p.o.
Assessment / Plan
Assessment / Plan
IMPRESSION:
22 woman with mono comes in with abd pain, nausea and vomiting with eating. CT shows splenomegaly.
PLAN:
Dysphagia/odynophagia
Patient unable to tolerate clear liquid
Endoscopic today per GI
N.p.o.
Wait for endoscopic results, likely discharge tomorrow if results are okay
Left upper and epigastric quadrant pain in the setting of infectious mononucleosis
Splenomegaly can cause pain in the abdomen due to pain receptors. This pain is self-limiting and it would take about 2-3 weeks
Patient hemodynamically stable
CT abdomen and pelvis-
IMPRESSION:
1. No CT evidence for an acute inflammatory process in the abdomen or pelvis.
2. Splenomegaly
-IV fluids
Nausea
Continue IV Protonix
Continue Compazine as needed
Oral thrush
On nystatin for oral thrush
Patient was also using steroid inhalers at home
No thrush seen
History of seizures
-Continue with Lamictal
Mood disorder
-Continue with Effexor and Abilify
Tobacco abuse
-Nicotine patch
Morbid obesity due to excess calories
DVT prophylaxis. SCDs
Full code
Discussed with patient portion of bedside
Anticipated Discharge: Within 24 hours
Subjective/Interval History
-
Date of Service: May 31, 2023
Patient patient reports of dysphagia, unable to tolerate liquids
Objective Data
-
Labs:
Laboratory Results
05/31/23
05:31
WBC 10.2
Hgb 13.0
Hct 40.0
Plt Count 359
Sodium 136
Potassium 4.4
Chloride 104
Carbon Dioxide 24
BUN 6 L
Creatinine 0.7
Glucose 81
Calcium 9.4
Total Bilirubin 0.7
AST 45 H
ALT 72 H
Alkaline Phosphatase 352 H
Vital Signs:
Vital Signs
Temp Pulse Resp BP Pulse Ox
98.7 F 94 19 113/65 98
05/31/23 07:00 05/31/23 07:00 05/31/23 07:00 05/31/23 07:00 05/31/23 07:00
I&O
05/30/23 05/31/23 06/01/23
06:59 06:59 06:59
Intake Total 2520 / 2520 2880 / 2880
Balance 2520 / 2520 2880 / 2880
Review of Systems
-
History Source: Patient
All other systems: Reviewed and negative (Except mentioned)
EENT: Reports Other (Dysphagia)
Physical Exam
-
General: Well Developed
HEENT: Normocephalic
Respiratory: Clear to Auscultation
Cardiac: Regular Rhythm and S1/S2
GI: Soft, Normal Bowel Sounds and Tender
Musculoskeletal: No Edema
Neuro: AO x 3
Data Reviewed
-
Labs: Labs Reviewed by me and Discussed with Physician
[2023-05-31] MEDS: ULTRAM 25 MG PO ×2 (10:10→21:22)
--- NOTE | 2023-05-31 10:46 | PN.CDI ---
CDI
- -
CDI:
Physician Documentation Request
Admit Date: 05/28/23 23:59
Dear Doctor Theresa,
Patient admitted for infectious mononucleosis.
05/28/23
16:21
WBC 13.9 H
05/28/23
16:09 05/28/23
17:18 05/28/23
17:45
Pulse 114 115 112
05/28/23
16:45 05/28/23
17:18 05/28/23
17:45
Resp Rate 24 22 26
Please clarify which of the following most accurately describes the status of the patient's infection:
Sepsis, POA
- Systemic manifestations of infection, with 2 or more SIRS criteria which include:
- Fever >100.4 degrees F or hypothermia < 96.8 degrees F
- Leukocytosis - WBC > 12,000 or leukopenia - WBC < 4,000 or > 10% bands
- Tachycardia > 90 beats per minute
- Tachypnea - RR > 20 breaths per minute or PaCO2 , 32mmHg
Source: Merck Manual 2012
Localized Infection Only, Without Systemic Illness
Other
Use of terms such as suspected, likely, concern for, or probable (associated with a specific diagnosis that is being evaluated, monitored, or treated as if it exists) are acceptable and can be coded in the inpatient setting, when documented at the
time of discharge.
Thank you,
Nika Josue RN, BSN
CDI Specialist
Available via [place] text
Please use your independent medical judgment in providing your response.
[2023-05-31 13:00] VITALS: BP 114/86; BP_SYST 23
[2023-05-31 13:15] VITALS: BP 114/86; BP_SYST 11
[2023-05-31] MEDS: FIRST-MOUTHWASH BLM SUSPENSION 5 ML PO ×3 (14:20→21:22)
--- NOTE | 2023-05-31 14:54 | CON.ID ---
Consultation
-
Date/Time Consultation Requested: May 31, 2023 1246
Date/Time Consultation Performed: May 31, 2023 1455
Requesting Provider: Dr. Damari Aaron
Performing Provider: Dr. Shawanda Stokes
Reason for Consultation: Possible HSV esophagitis
Chief Complaint / Past History
Chief Complaint
Throat pain, left side abdominal pain
History of Present Illness
22-year-old female with history of seizure disorder who developed retrosternal pain, difficulty swallowing last week. She had fevers chills malaise. She went to [facility] and the monotest was positive. CAT scan also noted to have
splenomegaly. She was told she had mononucleosis. Patient was discharged. However she did not feel improved. She continued to have esophagus pain with or without eating. She has history of cold sores. Last week she noted cold sores in her
mouth. She has some now on her lips. She never had mono in the past. She did share a cup with her coworker. She is monogamous with her 1 partner. Denies STD risk factors. She never had STD in the past. No history of genital HSV. No new meds.
Past History
Additional Past Medical History:
Seizure disorder
BMI 37
Allergy History:
pecan nut Allergy (Severe, Verified 05/12/23 12:07)
Anaphylaxis
ondansetron [From Zofran] Allergy (Intermediate, Verified 05/12/23 12:07)
Hives
risperidone Allergy (Intermediate, Verified 05/12/23 12:07)
Unknown
Medications Reviewed: Yes
Current Antibiotics:
Acyclovir 400mg po tid
Social History
Tobacco: Smoker
Alcohol: None
Drug: None
Personal: Partner (boyfriend)
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
Family History
Family History: Not Pertinent
Review of Systems
Review of Systems
General: Change in Appetite
HEENT: Pharyngitis; Negative Sinus Problems or Headache
Respiratory: Negative Dyspnea or Cough
Gasteroenterology: Other (no diarrhea); Negative Vomiting
Genital / Urological: Negative Dysuria or Flank Pain
Endocrine: Fatigue
Musculoskeletal: Negative Arthralgias
Skin / Hair / Nails: Negative Rash
All systems: All other systems were reviewed and were negative
Vital Signs
Temp Pulse Resp BP Pulse Ox
98.4 F 98 11 114/86 97
05/31/23 13:15 05/31/23 13:15 05/31/23 13:15 05/31/23 13:15 05/31/23 13:15
Physical Exam
Physical Exam
Constitutional: No Acute Distress, Comfortable and Obese
Eyes: No Conjunctival Hemorrhage and Sclera Anicteric
Oral: No Thrush, Ulcers (ulcers on inner and outer lower lip) and Other
Cardiovascular: Regular Rate and Irregular Rate
Pulmonary: Clear
Gastrointestinal: Soft, Non Tender, Non Distended and Normal Bowel Sounds
Genito-Urinary: Negative CVA Tenderness
Extremities: Negative Edema
Skin: Negative Jaundice
Neurological: AO x 3
Lab / Diagnostic Study Results
05/31/23 05:31
05/31/23 05:31
Abs Immat Gran (auto) 0.1 10^3/uL (0-0.05) H 05/31/23 05:31
Absolute Neuts (auto) 2.9 10^3/uL (1.4-6.5) 05/31/23 05:31
Absolute Lymphs (auto) 6.4 10^3/uL (1.2-3.4) H 05/31/23 05:31
Absolute Monos (auto) 0.7 10^3/uL (0.1-0.6) H 05/31/23 05:31
Absolute Basos (auto) 0.0 10^3/uL (0-0.2) 05/31/23 05:31
Total Counted 100 05/29/23 07:46
Immature Gran % 0.6 % (0-0.5) H 05/31/23 05:31
Neutrophils % 28.8 % (42.2-75.2) L 05/31/23 05:31
Lymphocytes % 63.4 % (20.5-51.1) H 05/31/23 05:31
Monocytes % 6.4 % (1.7-9.3) 05/31/23 05:31
Eosinophils % 0.4 % (0-6) 05/31/23 05:31
Basophils % 0.4 % (0-2) 05/31/23 05:31
Abs Neuts (Manual) 4.1 10^3/uL (1.4-6.5) 05/29/23 07:46
Segmented Neutrophils 38 % (42-75) L 05/29/23 07:46
Band Neutrophils 1 % (0-3) 05/29/23 07:46
Lymphocytes (Manual) 49 % (20-51) 05/29/23 07:46
Ur Squamous Epith Cells >30 /LPF (Few) 05/28/23 16:21
Microbiology Results
Micro:
05/28/23 16:21 Urine Culture - Final
Urine
05/28/23 CT a/p: No CT evidence for an acute inflammatory process in the abdomen or pelvis. Splenomegaly.
05/28/23 ABD US: Cholelithiasis. No sonographic evidence of acute cholecystitis. No bile duct dilatation. Splenomegaly.
Assessment / Plan
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
- 05/31/23 EGD with punctate ulcers
-Biopsy pending
-DC acyclovir
-Start Valacyclovir 1000mg po tid x 7d.
-HIV pending. HSV esophagitis can occur in immunocompetent host.
# Mononucleosis
# Transaminitis,splenomegaly, + atypical lymphocytes
-Diagnosed 05/[address] [facility] + Monospot test
-Check EBV ab panel to confirm
-Supportive care
-Avoid trauma to spleen
[2023-05-31 15:00] VITALS: BP 124/77
[2023-05-31 15:29] LABS: HIV Combo Negative (Negative)
[2023-05-31] MEDS: VALTREX 1000 MG PO ×2 (16:05→21:07)
[2023-05-31] MEDS: ABILIFY 15 MG PO (21:06)
[2023-05-31] MEDS: CLARITIN 10 MG PO (21:07)
[2023-05-31] MEDS: EFFEXOR XR 150 MG PO (21:07)
[2023-05-31 23:13] VITALS: BP 113/75
[2023-06-01] MEDS: MYLICON 80 MG PO (00:04)
[2023-06-01 00:15] VITALS: BP 103/68
--- NOTE | 2023-06-01 00:18 | PTCARENOTE ---
This RN walked into pt's room to administer simethicone to pt. Pt talking with boyfriend when this RN walked in. Pt's boyfriend stated 'I think she had a seizure in bed just a minute ago'. Pt aaox3 and VSS. RIC Ely notified. No new orders.
Call silva within reach and continuing plan of care.
[2023-06-01 07:00] VITALS: BP 140/79
[2023-06-01] MEDS: LAMICTAL 50 MG PO (08:28)
[2023-06-01] MEDS: NEURONTIN 100 MG PO (08:29)
[2023-06-01] MEDS: VALTREX 1000 MG PO (08:32)
[2023-06-01] MEDS: MYCOSTATIN ORAL SUSPENSION 5 ML PO (08:32)
[2023-06-01] MEDS: NSS (PRESERVATIVE FREE) 10 ML IV (08:33)
[2023-06-01] MEDS: PROTONIX IV 40 MG IV (08:36)
[2023-06-01] MEDS: LAMICTAL 200 MG PO (08:36)
[2023-06-01] MEDS: FIRST-MOUTHWASH BLM SUSPENSION 5 ML PO (08:41)
--- NOTE | 2023-06-01 08:50 | W.PN.HOSP.TC ---
Addendum entered and electronically signed by Ulysses Cardenas MD 06/01/23 16:39:
Impression:
Persistent odynophagia/epigastric pain
Episode of emesis
Elevation of lipase.
Infectious mononucleosis
Lymphocytosis
Conditions prior to admission:
Seizure disorder on Lamictal
Mood disorder
Tobacco use disorder
Obesity with BMI of 36.
Plan:
Persistent odynophagia.
No thrush on exam. Initiated empirically on nystatin
EGD today consistent with lower esophageal ulcer highly suspicious for herpetic. No bleeding.
Pathology pending
Pending EBV antibody
ID consultation appreciated
HIV negative
Acyclovir changed to valacyclovir to complete 7-day course.
Monitor closely
Splenomegaly
Lymphocytosis.
Seizure disorder on Lamictal.
Mood disorder continue Effexor and Abilify.
Tobacco abuse disorder on nicotine patch
Original Note:
Today's Communication/Plan
-
Continue valacyclovir
Discharge likely
Assessment / Plan
Assessment / Plan
IMPRESSION:
22 woman with mono comes in with abd pain, nausea and vomiting with eating. CT shows splenomegaly.
PLAN:
Suspect HSV esophagitis
EGD 05/31/2023- Few superficial esophageal ulcers with no bleeding and no stigmata of recent bleeding were found - punched out apperance, atypical ulcers do NOT look like reflux suspect herpes esophagitis.
ID evaluation appreciated
Continue valacyclovir -day 2
Pathology result pending
HIV negative
EBV results pending
Possible discharge today
Left upper and epigastric quadrant pain in the setting of infectious mononucleosis
Splenomegaly can cause pain in the abdomen due to pain receptors. This pain is self-limiting and it would take about 2-3 weeks
Patient hemodynamically stable
CT abdomen and pelvis-
IMPRESSION:
1. No CT evidence for an acute inflammatory process in the abdomen or pelvis.
2. Splenomegaly
Nausea
switching to PO pantoprazole
Oral thrush
d/c nystatin at home
History of seizures
-Continue with Lamictal
Mood disorder
-Continue with Effexor and Abilify
Tobacco abuse
-Nicotine patch
Morbid obesity due to excess calories
DVT prophylaxis. SCDs
Full code
Discussed with patient portion of bedside
Anticipated Discharge: Today
Subjective/Interval History
-
Date of Service: June 01, 2023
Objective Data
-
Vital Signs:
Vital Signs
Temp Pulse Resp BP Pulse Ox
98.6 F 97 17 140/79 97
06/01/23 07:00 06/01/23 07:00 06/01/23 07:00 06/01/23 07:00 06/01/23 07:00
I&O
05/31/23 06/01/23 06/02/23
06:59 06:59 06:59
Intake Total 2880 / 2880 680 / 680
Balance 2880 / 2880 680 / 680
Review of Systems
-
History Source: Patient
All other systems: Reviewed and negative
Physical Exam
-
General: Well Developed
HEENT: Normocephalic and Atraumatic
Respiratory: Clear to Auscultation
Cardiac: Regular Rhythm and S1/S2
GI: Soft and Tender
Musculoskeletal: No Edema
Psych: Calm
Data Reviewed
-
Labs: Labs Reviewed by me and Discussed with Physician
--- NOTE | 2023-06-01 09:32 | W.PN.GI.CBS2 ---
Addendum entered and electronically signed by RIC Pham 06/01/23 11:27:
EGD bx pending--- I sent message to office to arrange GI follow up for possible discharge today. Would repeat LFT's and lipase in 1 week with elevation during admission.
Original Note:
Today's Communication / Plan
-
s/p EGD results as noted
pt much improved and now tolerating diet
cont rx per ID now on Valtrex and remains on nystatin
Transition PPI to PO BID
repeat LFT's and lipase in AM with some elevation since admission -- CBD normal on US, no current abdominal pain on diet
HIV neg(reviewed results with patient) EBV pending
Assessment / Plan
-
This patient is a 22-year-old woman who has a recent diagnosis of mononucleosis with throat pain, nausea, coughing and epigastric abdominal pain which may be related to splenomegaly. s/p EGD 05/30
05/31/23 EGD - Esophageal ulcers with no bleeding and no stigmata of recent bleeding. Biopsied.
- Normal stomach. Biopsied.- A few gastric polyps. Biopsied.- Normal examined duodenum. Biopsied.
-odynophagia
-EGD with esophageal ulcers with concern for HSV
-recent mono + testing repeat 05/28 neg
-splenomegaly on US and CT
-elevated LFT's and lipase
-cholelithasis
-recent dental work with abx couse
PLAN:
s/p EGD results as noted
pt much improved and now tolerating diet
cont rx per ID now on Valtrex and remains on nystatin
Transition PPI to PO BID
repeat LFT's and lipase in AM with some elevation since admission -- CBD normal on US, no current abdominal pain on diet
HIV neg(reviewed results with patient) EBV pending
Subjective
Subjective
Date of Service: June 01, 2023
patient much improved, tolerating diet, 4/1 brown stool
Objective
Data Reviewed
Laboratory Data:
Laboratory Results
05/31/23 05:31
05/31/23 05:31
Laboratory Results
Total Bilirubin 0.7 mg/dl (0.2-1.3) 05/31/23 05:31
AST 45 U/L (14-36) H 05/31/23 05:31
ALT 72 U/L (0-35) H 05/31/23 05:31
Alkaline Phosphatase 352 U/L (38-126) H 05/31/23 05:31
Lipase 711 U/L (23-300) H 05/31/23 05:31
Vital Signs and I&O:
Vital Signs
Temp Pulse Resp BP Pulse Ox
98.6 F 97 17 140/79 97
06/01/23 07:00 06/01/23 07:00 06/01/23 07:00 06/01/23 07:00 06/01/23 07:00
I&O
05/31/23 06/01/23 06/02/23
06:59 06:59 06:59
Intake Total 2880 / 2880 680 / 680
Balance 2880 / 2880 680 / 680
Physical Exam
Physical Exam
HEENT: Anicteric and Moist mucous membranes
Cardiology: Normal Sinus Rhythm
Pulmonary: Clear
GI: Soft, Non Distended and Non Tender
Extremities: No Edema
Neuro: Non Focal
--- NOTE | 2023-06-01 12:24 | W.DCSUMMARY ---
Documented by User: Karla Brown MD, Resident 06/01/23 12:39
Discharge Summary
Discharge Data
Date of Admission: 05/28/23
Date of Discharge: 06/01/23
-
Pending Results: No
Hospital Course
Discharge diagnosis
HSV esophagitis
Left upper and epigastric pain in the setting of infectious mononucleosis
GERD
Oral thrush
History of seizures
Mood disorder
Tobacco abuse
Hospital course
22-year-old female presented to the ED with left upper quadrant pain, odynophagia. Patient was previously seen at [facility] for a similar complaint a week ago and imaging shows hepatosplenomegaly. Patient was diagnosed with infectious
mononucleosis, on remission when she came to the [facility]. In the ED patient's vitals were normotensive, afebrile, hemodynamically stable. Patient was started on IV Protonix in the ED. up abdominal ultrasound showed cholelithiasis.
Abdominal CT showed splenomegaly. The next day patient symptoms worsened and she complained of increased pain in her throat and diffuse abdominal pain. She was unable to tolerate clear liquids. She was on IV Protonix and IV Compazine as needed.
GI was consulted and endoscopy procedure was planned. In the endoscopy it was found that there were rare punctate ulcers suggestive of herpes simplex virus esophagitis. Patient was started on valacyclovir 1000 mg 3 times a day per infectious
disease specialist. Patient's labs has been deranged since admission with increase in the LFTs, lipase. Over the course of the hospital stay AST and ALT level has improved and a little improvement in alkaline phosphatase. On the day of discharge
vitals are stable, patient is able to tolerate clear liquids and solids.
HSV esophagitis
Continue valacyclovir 1000 mg 3 times a day for 18 days
Follow-up with GI outpatient
Repeat LFTs and lipase in 1 week
Left upper and epigastric pain in the setting of infectious mononucleosis
EBV results pending
On imaging splenomegaly in the setting of infectious mononucleosis
Supportive care
Avoid trauma to spleen
GERD
Pantoprazole 40 mg twice daily p.o. for 4 weeks
Follow-up with GI outpatient
Oral thrush
Discontinue nystatin
Rinse mouth after inhaler use
History of seizure
Resume on home meds
Mood disorder
Resume on home meds
Tobacco abuse
Counseled to quit smoking
Discharge Plan
-
Patient Disposition: Home (Routine Discharge)
Discharge Diagnosis/Procedures: HSV esophagitis
Left upper and epigastric pain in the setting of infectious mononucleosis
Oral thrush
Nausea
History of seizures
Mood disorder
Tobacco abuse
Diet: No restrictions
Activity: No restrictions
Driving Restrictions: As prior to admission
Blood Work: LFT and lipase in one week
Referrals:
Arden Aaron MD [Active] - (3-4 week GI follow up with Dr. Aaron and MANAGEMENT TRAINER/PA)
Cassidy Steve CRNP [Family Provider] -
Additional Discharge Medication Instructions: Pantoprazole 40 mg twice daily for 4 weeks -GERD
Valacyclovir 1000 mg 3 times daily for 18 days-HSV esophagitis
Prescriptions:
New
pantoprazole 40 mg Tablet,Delayed Release (Dr/Ec)
40 mg PO BID Qty: 30 0RF
valacyclovir [Valtrex] 1 gram tablet
1,000 mg PO TID 6 Days Qty: 18 0RF
Continued
cetirizine [Zyrtec] 10 mg Tablet
10 mg PO QHS
venlafaxine [Effexor XR] 150 mg Capsule,Extended Release 24hr
150 mg PO QHS
aripiprazole 15 mg Tablet
15 mg PO HS
lamotrigine 150 mg Tablet
150 mg PO BID
lamotrigine 100 mg Tablet
100 mg PO BID
Rx Instructions:
pt. takes this in conjunction w/ 150 mg dose, twice daily
fluticasone propionate 110 mcg/actuation Hfa Aerosol Inhaler
1 puff INHALATION BID
gabapentin 100 mg capsule
100 mg PO TID
albuterol sulfate 90 mcg/actuation HFA aerosol inhaler
2 puff INHALATION Q4HPRN PRN (Reason: sob or wheezing)
Discharge Orders:
Discharge Patient (As Directed); Ordered 06/01/23
Ordered By: Karla Brown
Discharge Date and Time
Discharge Date/Time: 06/01/23 12:57
Print Language: PORTUGUESE

Documented by User: Ulysses Cardenas MD 06/01/23 16:38
Discharge Summary
Discharge Data
Date of Admission: 05/28/23
Date of Discharge: 06/01/23
Discharge Plan
-
Patient Disposition: Home (Routine Discharge)
Discharge Diagnosis/Procedures: HSV esophagitis
Left upper and epigastric pain in the setting of infectious mononucleosis
Oral thrush
Nausea
History of seizures
Mood disorder
Tobacco abuse
Diet: No restrictions
Activity: No restrictions
Driving Restrictions: As prior to admission
Blood Work: LFT and lipase in one week
Referrals:
Arden Aaron MD [Active] - (3-4 week GI follow up with Dr. Aaron and MANAGEMENT TRAINER/PA)
Cassidy Steve CRNP [Family Provider] -
Additional Discharge Medication Instructions: Pantoprazole 40 mg twice daily for 4 weeks -GERD
Valacyclovir 1000 mg 3 times daily for 18 days-HSV esophagitis
Prescriptions:
New
pantoprazole 40 mg Tablet,Delayed Release (Dr/Ec)
40 mg PO BID Qty: 30 0RF
valacyclovir [Valtrex] 1 gram tablet
1,000 mg PO TID 6 Days Qty: 18 0RF
Continued
cetirizine [Zyrtec] 10 mg Tablet
10 mg PO QHS
venlafaxine [Effexor XR] 150 mg Capsule,Extended Release 24hr
150 mg PO QHS
aripiprazole 15 mg Tablet
15 mg PO HS
lamotrigine 150 mg Tablet
150 mg PO BID
lamotrigine 100 mg Tablet
100 mg PO BID
Rx Instructions:
pt. takes this in conjunction w/ 150 mg dose, twice daily
fluticasone propionate 110 mcg/actuation Hfa Aerosol Inhaler
1 puff INHALATION BID
gabapentin 100 mg capsule
100 mg PO TID
albuterol sulfate 90 mcg/actuation HFA aerosol inhaler
2 puff INHALATION Q4HPRN PRN (Reason: sob or wheezing)
Discharge Orders:
Discharge Patient (As Directed); Ordered 06/01/23
Ordered By: Karla Brown
Discharge Date and Time
Discharge Date/Time: 06/01/23 12:57
Print Language: PORTUGUESE
--- NOTE | 2023-06-01 12:26 | CM ---
health safety manager following for d/c planning
Pt for d/c today
Has ride home with boyfriends father
Plan - home no needs
[2023-06-01 12:48] VITALS: BP 124/86
--- NOTE | 2023-06-01 14:59 | W.PN.UPDATE ---
Update Note
Progress Note Update
for billing purposes
--- NOTE | 2023-06-02 08:45 | PN.CDI ---
Addendum entered and electronically signed by Ulysses Cardenas MD 06/02/23 15:19:
Absolutely no clinical evidence for sepsis.
Original Note:
CDI
- -
CDI:
Physician Documentation Request
Admit Date: 05/28/23 23:59
Dear Doctor Theresa,
Patient admitted for infectious mononucleosis.
05/28/23
16:21
WBC 13.9 H
05/28/23
16:09 05/28/23
17:18 05/28/23
17:45
Pulse 114 115 112
05/28/23
16:45 05/28/23
17:18 05/28/23
17:45
Resp Rate 24 22 26
Please clarify which of the following most accurately describes the status of the patient's infection:
Sepsis, POA
- Systemic manifestations of infection, with 2 or more SIRS criteria which include:
- Fever >100.4 degrees F or hypothermia < 96.8 degrees F
- Leukocytosis - WBC > 12,000 or leukopenia - WBC < 4,000 or > 10% bands
- Tachycardia > 90 beats per minute
- Tachypnea - RR > 20 breaths per minute or PaCO2 , 32mmHg
Source: Merck Manual 2013
Localized Infection Only, Without Systemic Illness
Other
Use of terms such as suspected, likely, concern for, or probable (associated with a specific diagnosis that is being evaluated, monitored, or treated as if it exists) are acceptable and can be coded in the inpatient setting, when documented at the
time of discharge.
Thank you,
Nika Josue RN, BSN
CDI Specialist
Available via [place] text
Please use your independent medical judgment in providing your response.
[2023-06-03 02:27] LABS: EBV-EA (D) Ab IgG 65.5 U/mL (0.0-10.9); EBV-NA IgG <3.0 U/mL (0.0-21.9); EBV-VCA IgG Antibodies 41.9 U/mL (0.0-21.9); EBV-VCA IgM Antibodies >160.0 U/mL (0.0-43.9)
== END 2023-06-01 12:57 | disposition home or self-care (01) | DRG 866 ==
LOC: 3 WEST ACU 23:59
PROVIDERS: Hospitalist; Internal Medicine Gastroenterology; Nurse Practitioner; Physician Assistant; ADMITTING PHYSICIAN Internal Medicine; ATTENDING PHYSICIAN Internal Medicine; CONSULT PHYSICIAN Internal Medicine; CONSULT PHYSICIAN Internal Medicine Infectious Disease; EMERGENCY PHYSICIAN Emergency Medicine; FAMILY PHYSICIAN Nurse Practitioner Family
PROC: 0DB98ZX Excision of Duodenum, Via Natural or Artificial Opening Endoscopic, Diagnostic (ICD-10-PCS; 2023-05-31)
PROC: 0DB68ZX Excision of Stomach, Via Natural or Artificial Opening Endoscopic, Diagnostic (ICD-10-PCS; 2023-05-31)
PROC: 0DB58ZX Excision of Esophagus, Via Natural or Artificial Opening Endoscopic, Diagnostic (ICD-10-PCS; 2023-05-31)
DX: B27.90 Infectious mononucleosis, unspecified without complication (principal); B37.0 Candidal stomatitis; K22.10 Ulcer of esophagus without bleeding; B00.1 Herpesviral vesicular dermatitis; R07.0 Pain in throat; R16.2 Hepatomegaly with splenomegaly, not elsewhere classified; F31.9 Bipolar disorder, unspecified; F41.9 Anxiety disorder, unspecified; F43.10 Post-traumatic stress disorder, unspecified; F42.9 Obsessive-compulsive disorder, unspecified; K59.09 Other constipation; B37.31 Acute candidiasis of vulva and vagina; D72.820 Lymphocytosis (symptomatic); F39 Unspecified mood [affective] disorder; R74.01 Elevation of levels of liver transaminase levels; K31.7 Polyp of stomach and duodenum; G40.909 Epilepsy, unspecified, not intractable, without status epilepticus; E66.01 Morbid (severe) obesity due to excess calories; F17.200 Nicotine dependence, unspecified, uncomplicated; Z68.37 Body mass index [BMI] 37.0-37.9, adult; Z88.8 Allergy status to other drugs, medicaments and biological substances; Z91.018 Allergy to other foods; Z79.51 Long term (current) use of inhaled steroids; Z86.19 Personal history of other infectious and parasitic diseases
CPT/HCPCS: 88305; 88312; 74177; 76700; 80053; 81003; 81015; 81025; 82248; 83690; 85025; 86308; 86663; 86664; 86665; 87086; 87389; 87811; 88342; 96361; 96374; 96375; 96376; 99285; Q9967

== ENCOUNTER 2023-08-21 02:49 | Emergency (ER) | payer BC, OTHER, SELFPAY ==
[2023-08-21 02:51] VITALS: BP 118/74
[2023-08-21 03:18] VITALS: BMI 38.3
[2023-08-21 03:22] LABS: % Basophils 0.4 % (0-2); % Eosinophils 1.7 % (0-6); % Immature Granulocytes 0.5 % (0-0.5); % Lymphocytes 38.4 % (20.5-51.1); Absolute Eosinophils 0.2 10^3/uL (0-0.7); Absolute Immature Granulocytes 0.1 10^3/uL (0-0.05); Absolute Lymphocytes 3.8 10^3/uL (1.2-3.4); Absolute Monocytes 0.8 10^3/uL (0.1-0.6); Absolute Neutrophils 5.1 10^3/uL (1.4-6.5); Hematocrit 35.9 % (37.0-47.0); Mean Corp Hgb Conc. 33.4 g/dL (33.0-37.0); Mean Corpuscular Hgb 27.5 pg (27.0-31.0); Mean Corpuscular Volume 82.3 fL (81.0-99.0); Mean Platelet Volume 9.1 fL (7.4-10.4); Nucleated Red Blood Cells % 0 %; Platelet Count 307 10^3/uL (130-400); Red Blood Cell Count 4.36 10^6/uL (4.20-5.40); Red Cell Dist. Width 14.3 % (11.5-14.5)
[2023-08-21 03:25] LABS: Urine Albumin 1+ (Neg - Trace); Urine Bilirubin Negative (Negative); Urine Character Slightly Cloudy (Clear); Urine Color Yellow; Urine Glucose Negative (Negative); Urine Ketone Trace (Negative); Urine Leukocyte 1+ (Negative); Urine Nitrite Negative (Negative); Urine Occult Blood Negative (Negative); Urine Specific Gravity 1.025 (<1.030); Urine Urobilinogen Negative (Neg - 1+)
[2023-08-21 03:34] LABS: HCG, Serum Qualitative Screen Negative
[2023-08-21 03:35] LABS: Amphetamines Negative (Negative); Barbiturates Negative (Negative); Benzodiazepines Negative (Negative); Buprenorphine Negative (Negative); Cocaine Negative (Negative); Marijuana Positive (Negative); Methadone Negative (Negative); Methamphetamines Negative (Negative); Opiates Negative (Negative); Phencyclidine Negative (Negative); Tricyclic Antidepressants Negative (Negative)
[2023-08-21 03:36] LABS: Blood Urea Nitrogen 15 mg/dl (7-17); Chloride 107 mmol/L (98-107); Estimated Creatinine Clearance 93 ml/min; Glucose 116 mg/dl (70-99); Sodium 141 mmol/L (135-145); eGFR > 60.00
[2023-08-21 03:37] LABS: ALT (SGPT) 19 U/L (0-35); AST (SGOT) 26 U/L (14-36); Acetaminophen < 10 ug/ml (10-30); Albumin 4.5 g/dl (3.5-5.0); Alkaline Phosphatase 116 U/L (38-126); Calcium 9.9 mg/dl (8.4-10.2); Carbon Dioxide 22 mmol/L (22-30); INR 1.01; PT 13.1 Sec (11.4-14.6); Salicylate < 1.0 mg/dl (2.0-20.0); Total Bilirubin 0.3 mg/dl (0.2-1.3); Total Protein 7.1 g/dl (6.3-8.2)
[2023-08-21 03:39] LABS: Alcohol None Detected
[2023-08-21 03:46] LABS: Urine Bacteria Moderate (Negative); Urine Red Blood Cell None Seen /HPF (0-2); Urine Squamous Cell >30 /LPF (Few)
--- NOTE | 2023-08-21 05:23 | ED.GENMED ---
History of Present Illness
General
Chief Complaint: Crisis Evaluation
Source: patient
Exam Limitations: none
Time Seen by Provider: 08/21/23 02:57
Nursing documentation reviewed up to this point in time: agreed with
History of Present Illness
History of Present Illness:
23-year-old female brought in by EMS with police escort presents to the emergency department after a suicide attempt. Patient took 6 gabapentin this evening for which she says was an attempt at suicide. She typically takes 300 mg a day. She took
600 mg tonight. She does admit to throwing up 2 of the pills. Patient denies any other ingestion. She states that she wants to go to [facility]. She is very limited on her history stating that she does not want to talk about things and refuses
to answer questions.
Past History
Past History
ED Past Medical History: Seizures and Psychiatric (Anxiety, Asberger's, bipolar, depression, PTSD, OCD)
ED Past Surgical History: None
Patient has exhibited threatening behavior?: No
Social History
Tobacco: Vaping
Personal: Single
Review of Systems
Review of Systems
Allergies reviewed?: Yes
All Other Systems: ROS reviewed and negative except as documented in HPI and ROS
Constitutional: Reports no symptoms
EENT: Reports no symptoms
Respiratory: Reports no symptoms
Cardiac: Reports no symptoms
ABD/GI: Reports no symptoms
: Reports no symptoms
Musculoskeletal: Reports no symptoms
Skin: Reports no symptoms
Neurological: Reports no symptoms
Endocrine: Reports no symptoms
Hematologic/Lymphatic: Reports no symptoms
Psychiatric: Reports depression, anxiety and suicidal
Phy Exam
General Physical Exam
General Presentation: well appearing and no apparent distress
General Skin: warm and dry
General Habitus: normal
General Mental: alert
General Hydration: appears well hydrated
ENT Exam
ENT Exam: EOMI, pharynx normal, neck supple and normocephalic
Eye Exam
Eye Exam: PERRL, cornea clear and conjunctiva normal
Cardiovascular Exam
Cardiovascular Exam: regular rate/rhythm, no edema, no murmur and normal peripheral pulses
Pulmonary Exam
Pulmonary Exam: lungs clear, no respiratory distress, no rales, no crackles, no rhonchi, no stridor, no wheezing and no cough
Gastrointestinal Exam
Gastrointestinal Exam: normal bowel sounds, non tender, soft, no organomegaly, no pulsatile mass and non distended
Neurological Exam
Neurological Exam: alert, oriented x3, no motor deficits and speech normal
Musculoskeletal Exam
Musculoskeletal Exam: full ROM and no edema
Skin Exam
Skin Exam: normal color, warm/dry, no rash and no petechia
Psychiatric Exam
Psychiatric Exam: normal mood/affect
Course
Orders/Labs/Results
Orders:
Orders
08/21/23 02:58
Crisis Consult Urgent
Reason for Consult: suicidal ideation
1:1 Observation - Suicide/ Violent Behavior As Directed
08/21/23 03:01
Test Result ONCE
08/21/23 03:02
Electrocardiogram (*1) Stat
Reason for Study: Other
Other Reason for Exam: overdose
EKG- Treatment ONCE
08/21/23 03:13
Acetaminophen Urgent
Alcohol Urgent
Complete Blood Count/With Diff Urgent
Comprehensive Metabolic Panel Urgent
HCG, Serum Qualitative Screen Urgent
PTT Urgent
Prothrombin Time Urgent
Salicylate Urgent
Urinalysis Reflex To Culture Urgent
Date Specimen was Collected: 08/21/23
Time Specimen was Collected: 03:05
Urine Drug Abuse Screen Urgent
Date Specimen was Collected: 08/21/23
Time Specimen was Collected: 03:05
Urine Microscopic Reflex Cult Urgent
Urine Culture Urgent
JENNA Source: U
Specimen Description:
Date Specimen was Collected: 08/21/23
Time Specimen was Collected: 03:05
08/21/23 05:34
Consult Notification Routine
Specialty to Notify: Psychiatry
PSYCHIATRY CONSULT Urgent
Consulting Provider: Alessia Barrientos
Was physician already notified: No
Reason for consult: suicidal
Abnormal Lab Results
08/21/23
03:13
Hct 35.9 L %
(37.0-47.0)
Abs Immat Gran (auto) 0.1 H 10^3/uL
(0-0.05)
Absolute Lymphs (auto) 3.8 H 10^3/uL
(1.2-3.4)
Absolute Monos (auto) 0.8 H 10^3/uL
(0.1-0.6)
Glucose 116 H mg/dl
(70-99)
Urine Ketones Trace A
(Negative)
Leukocyte Esterase Rfl 1+ A
(Negative)
Urine Bacteria (Reflex) Moderate A
(Negative)
Urine Albumin (Reflex) 1+ A
(Neg - Trace)
Salicylates < 1.0 L mg/dl
(2.0-20.0)
Acetaminophen < 10 L ug/ml
(10-30)
U Marijuana (THC) Screen Positive H
(Negative)
08/21/23 03:13
08/21/23 03:13
Vital Signs
Initial and Last Documented VS:
Initial Vital Signs
Temp Pulse Resp BP Pulse Ox
98.8 F 100 22 118/74 97
08/21/23 02:51 08/21/23 02:51 08/21/23 02:51 08/21/23 02:51 08/21/23 02:51
Last Documented Vital Signs
Temp Pulse Resp BP Pulse Ox
98.8 F 100 22 118/74 97
08/21/23 02:51 08/21/23 02:51 08/21/23 02:51 08/21/23 02:51 08/21/23 02:51
*Pulse Oximetry
Patient hypoxic: no
*EKG
Interpreted by ED Provider?: Yes
EKG Intrepretation Date: 08/21/23
Comparison EKG: changes noted
Heart Rate: 101
Rate: tachycardiac
Rhythm: sinus
[place]: normal axis
Interval: normal interval
QRS Pattern: normal QRS
Ischemia: no ischemia
*Critical Care Note
Total Time (30-74mins, 75-104mins- exclusive of procedures): Not Applicable
Update Note
Update Note:
08/21/2023 0529 AM:
ED Attending Note
-
Portions of this chart may have been created with voice recognition software.� Occasional wrong word or��sound alike� substitutions may have occurred due to the inherent limitations of voice recognition software.
Discharge Plan
Departure
Patient Disposition: Psych Facility
Date of Disposition: 08/21/23
Time of Disposition: 05:34
Patient Status:: 201
Condition: Good
Discharge Problem:
Suicide attempt
Instructions: Depression, Adult (DC), Anxiety, Adult (DC)
Prescriptions:
No Action
cetirizine [Zyrtec] 10 mg Tablet
10 mg PO QHS
venlafaxine [Effexor XR] 150 mg Capsule,Extended Release 24hr
150 mg PO QHS
aripiprazole 15 mg Tablet
15 mg PO HS
lamotrigine 150 mg Tablet
150 mg PO BID
lamotrigine 100 mg Tablet
100 mg PO BID
Rx Instructions:
pt. takes this in conjunction w/ 150 mg dose, twice daily
fluticasone propionate 110 mcg/actuation Hfa Aerosol Inhaler
1 puff INHALATION BID
gabapentin 100 mg capsule
100 mg PO TID
albuterol sulfate 90 mcg/actuation HFA aerosol inhaler
2 puff INHALATION Q4HPRN PRN (Reason: sob or wheezing)
pantoprazole 40 mg Tablet,Delayed Release (Dr/Ec)
40 mg PO BID Qty: 30 0RF
valacyclovir [Valtrex] 1 gram tablet
1,000 mg PO TID 6 Days Qty: 18 0RF
Referrals:
UNKNOWN - PT NOT,INTERVIEWE [Family Provider] -
Interventions
Interventions:
*Risk Screen - Suicide Last Done: 08/21/23 02:51
*General Assessment Last Done: 08/21/23 02:51
*Neglect/Abuse Screening Last Done: 08/21/23 02:51
ED-Psychological Assessment Last Done: 08/21/23 03:18
Discharge Date and Time
Print Language: [id number]
== END 2023-08-21 10:21 ==
LOC: EMR 02:49
PROVIDERS: CONSULT PHYSICIAN Psychiatry & Neurology Psychiatry; EMERGENCY PHYSICIAN Student in an Organized Health Care Education/Training Program
DX: T50.992A Poisoning by other drugs, medicaments and biological substances, intentional self-harm, initial encounter (principal); Y92.9 Unspecified place or not applicable; F17.290 Nicotine dependence, other tobacco product, uncomplicated; F41.9 Anxiety disorder, unspecified; F42.9 Obsessive-compulsive disorder, unspecified; F43.10 Post-traumatic stress disorder, unspecified; R45.6 Violent behavior
CPT/HCPCS: 99283; 80053; 80143; 80179; 80306; 81003; 81015; 82077; 84703; 85025; 85610; 85730; 87086; 93005